=== PATIENT | male | born 2000 | race Caucasian/White ===

== ENCOUNTER 2019-11-20 22:15 | Emergency (ER) | payer OTHER ==
[~2019-11-20] VITALS: Ht 182.9 cm; Wt 122.7 kg
[2019-11-20 22:18] VITALS: BP 173/97; Ht 182.9 cm; Wt 122.7 kg
[2019-11-20 22:44] LABS: BASOPHILS 0.2 % (0-2); EOSINOPHILS 0.5 % (0-7); HEMATOCRIT 47.8 % (42.0-54.0); IMMATURE GRANULOCYTES 0.9 % (0-5); LYMPHOCYTES 18.7 % (15-50); MCH 29.3 pg (26.0-34.0); MCHC 33.5 g/dL (31.0-37.0); MCV 87.5 fL (80.0-100.0); MEAN PLATELET VOLUME 10.2 fL (7.4-10.4); MONOCYTES 7.3 % (2-11); NEUTROPHILS 72.4 % (40-80); PLATELET COUNT 276 10x3/uL (130-400); RBC 5.46 10x6/uL (4.20-6.10); RDW 12.3 % (11.5-14.5); WBC 11.2 10x3/uL (4.8-10.8)
[2019-11-20 22:45] LABS: CALC OSMOLALITY 275 mosm/kg (275-300); CALCIUM 9.2 mg/dL (8.5-10.1); CHLORIDE - SERUM 102 mmol/L (98-107); CREATININE - SERUM 1.1 mg/dL (0.6-1.3); GLUCOSE 100 mg/dL (74-106); POTASSIUM - SERUM 3.5 mmol/L (3.5-5.1); SODIUM 138 mmol/L (136-145); UREA NITROGEN 12 mg/dL (7-18); eGFR NON AFRICAN AMERICAN 90 mL/min (90-120)
[2019-11-20 23:00] LABS: ALBUMIN 4.2 g/dL (3.4-5.0); ALKALINE PHOSPHATASE 79 U/L (30-120); ALT (SGPT) 32 U/L (10-68); BILIRUBIN - TOTAL 0.55 mg/dL (0.2-1.3); CREATINE KINASE 142 UL (21-232); PRO BNP 130 pg/mL (0-125); PROTEIN - SERUM 8.1 g/dL (6.4-8.2); THYROID STIMULATING HORMONE 2.34 uIU/mL (0.36-3.74)
[2019-11-20 23:11] LABS: TROPONIN-I < 0.017 ng/mL (0.000-0.060)
== END 2019-11-20 23:35 | disposition home or self-care (01) ==
LOC: D.ER 22:15
PROVIDERS: Family Medicine
DX: R07.89 Other chest pain (principal); R00.2 Palpitations; R06.02 Shortness of breath

== ENCOUNTER 2020-12-09 21:16 | Emergency (ER) | payer OTHER ==
[~2020-12-09] VITALS: Ht 182.9 cm; Wt 126.4 kg
[2020-12-09 21:25] VITALS: Ht 182.9 cm; Wt 126.4 kg
[2020-12-09] MEDS ORDERED: AUGMENTIN 875-11 TAB PO (22:51)
[2020-12-09 23:22] VITALS: BP 154/88
== END 2020-12-09 23:22 | disposition home or self-care (01) ==
LOC: D.ER 21:16
DX: S06.0X9A Concussion with loss of consciousness of unspecified duration, initial encounter (principal); J32.0 Chronic maxillary sinusitis; Z72.0 Tobacco use; W19.XXXA Unspecified fall, initial encounter; Y93.9 Activity, unspecified; Y92.9 Unspecified place or not applicable